=== PATIENT | male | born 1950 | race African-American/Black ===

== ENCOUNTER 2022-02-18 03:56 | Day surgery (SDC) | payer OTHER ==
[2022-02-13 14:45] VITALS: BMI 27.1
[2022-02-18 06:15] VITALS: PULSE 54
[2022-02-18] MEDS ORDERED: PROPOFOL 20 ML ONE (07:24)
[2022-02-18] MEDS ORDERED: KETOROLAC TROMETHAMINE 30 MG/1 ML VIAL ONE (08:44)
[2022-02-18 11:32] VITALS: BP 122/68; RESP 20; TEMP 97.5
== END 2022-02-18 10:12 | disposition home or self-care (01) ==
LOC: JASU-SURG 03:56
PROVIDERS: ATTEND Urology
PROC: 0TF3XZZ Fragmentation in Right Kidney Pelvis, External Approach (ICD-10-PCS; principal; 2022-02-18 08:00)
DX: N20.0 Calculus of kidney (principal)